=== PATIENT | male | born 1930 | race Caucasian/White ===

== ENCOUNTER 2018-08-21 06:58 | Day surgery (SDC) | payer MEDICARE, BC ==
[2018-08-21] MEDS ORDERED: Pilocarpine 4% Ophth Soln 15 ML Bot EYELF SCH (07:00)
[2018-08-21] MEDS ORDERED: Lidocaine 1% PF 2 ML SDV INJECT SCH (07:00)
[2018-08-21] MEDS ORDERED: Cefuroxime 10 MG/ML SYRINGE EYELF SCH (07:00)
--- NOTE | 2018-08-21 07:22 | PCM.PREANE ---
Preanesthetic Assessment - Anesthesia/Transfusion/Family Hx Anesthesia History: Prior Anesthesia Without Reaction Family History of Anesthesia Reaction: No Transfusion History: No Prior Transfusion(s) - Review of Systems General: No Symptoms Pulmonary: No Symptoms Cardiovascular: No Symptoms Gastrointestinal: No Symptoms Neurological: No Symptoms Other: Reports: None - Physical Assessment NPO Status Date: 08/18/18 NPO Status Time: 20:00 Pulse: 58 O2 Sat by Pulse Oximetry: 97 Respiratory Rate: 16 Blood Pressure: 146/78 Temperature: 97.1 C Height: 1.73 m Weight: 77.111 kg ASA Class: 2 Mental Status: Alert & Oriented x3 Airway Class: Mallampati = 1 Dentition: Reports: Broken Tooth/Teeth Thyro-Mental Finger Breadths: 3 Mouth Opening Finger Breadths: 3 ROM/Head Extension: Full Lungs: Clear to Auscultation, Normal Respiratory Effort Cardiovascular: Regular Rate, Regular Rhythm - Allergies Allergies/Adverse Reactions: Allergies Allergy/AdvReac Type Severity Reaction Status Date / Time No Known Allergies Allergy Verified 08/20/18 09:31 - Anesthesia Plan Beta [place]: Atenolol Med Last Dose Date: 08/21/18 Med Last Dose Time: 05:00 - Acknowledgements Anesthesia Type Planned: MAC Pt an Appropriate Candidate for the Planned Anesthesia: Yes Alternatives and Risks of Anesthesia Discussed w Pt/Guardian: Yes Pt/Guardian Understands and Agrees with Anesthesia Plan: Yes PreAnesthesia Questionnaire HEENT History: Reports: Cataract Cardiovascular History: Reports: Hypertension Respiratory History: Reports: SOB (with exertion) Gastrointestinal History: Reports: None Genitourinary History: Reports: None, Other (See Below) (hx prostate CA) Musculoskeletal History: Reports: Arthritis Neurological History: Reports: None Psychiatric History: Reports: None Endocrine/Metabolic History: Reports: None - Past Surgical History HEENT Surgical History: Reports: None GI Surgical History: Reports: Colonoscopy Male Surgical History: Reports: TURP-Transurethral Resection of Prostate Neurological Surgical History: Reports: Lumbar Spine Musculoskeletal Surgical History: Reports: Shoulder Replacement ((R)) - SUBSTANCE USE Smoking Status *Q: Never Smoker - HOME MEDS Home Medications: Home Meds Aspirin [Halfprin] 81 mg PO DAILY 08/20/18 [History] Atenolol 25 mg PO DAILY 08/20/18 [History] Calcium Carbonate [Antacid] 168 mg PO DAILY 08/20/18 [History] Cholecalciferol (Vitamin D3) [Vitamin D3] 1,000 units PO DAILY 08/20/18 [History ] Denosumab [Prolia] 60 mg INJECT Q6M 08/20/18 [History] Leuprolide Acetate [Eligard] 7.5 mg SQ Q6M 08/20/18 [History] - CURRENT (IN HOUSE) MEDS Current Meds: Current Medications Brimonidine Tartrate (Alphagan 0.2% Ophth Soln) 0 ml EYELF ASDIRECTED HERBERTH Stop: 08/21/18 18:00 Cefuroxime Sodium (Zinacef) 0 mg EYELF ASDIRECTED HERBERTH Stop: 08/21/18 18:00 Lidocaine HCl (Xylocaine-Mpf 1%) 0 ml INJECT ASDIRECTED HERBERTH Stop: 08/21/18 18:00 Phenylephrine HCl (Wilder-Synephrine 2.5% Ophth Soln) 0 ml EYELF ASDIRECTED HERBERTH Stop: 08/21/18 18:00 Pilocarpine HCl (Pilocar 4% Ophth Soln) 0 ml EYELF ASDIRECTED HERBERTH Stop: 08/21/18 18:00 Polymyxin/Trimethoprim Sulfate (Polytrim Ophth Soln) 0 ml EYELF ASDIRECTED HERBERTH Stop: 08/21/18 18:00 Tetracaine HCl (Tetracaine 0.5% Steri-Unit Jamia) 0 ml EYELF ASDIRECTED HERBERTH Stop: 08/21/18 18:00 Tropicamide (Mydriacyl 1% Ophth Soln) 0 ml EYELF ASDIRECTED HERBERTH Stop: 08/21/18 18:00
[2018-08-21] MEDS: Polymyxin B/Trimethoprim 10 ML Bottle EYELF SCH ×3 (07:27→09:01)
[2018-08-21] MEDS: Brimonidine 0.2% Ophth Soln 5 ML Bottle EYELF SCH ×3 (07:31→09:01)
[2018-08-21] MEDS: Phenylephrine 2.5% Ophth Soln 2 ML Bot EYELF SCH ×5 (07:36→08:42)
[2018-08-21] MEDS: Tropicamide 1% Ophth Soln 15 ML Bottle EYELF SCH ×4 (07:41→08:21)
[2018-08-21] MEDS: Tetracaine HCl/PF 0.5% 4 ML Bottle EYELF SCH ×4 (08:27→08:48)
--- NOTE | 2018-08-21 09:06 | PCM48HPAN ---
Post Anesthesia Note - EVALUATION WITHIN 48HRS OF ANESTHETIC Vital Signs in Normal Range: Yes Patient Participated in Evaluation: Yes Respiratory Function Stable: Yes Airway Patent: Yes Cardiovascular Function Stable: Yes Hydration Status Stable: Yes Pain Control Satisfactory: Yes Nausea and Vomiting Control Satisfactory: Yes Mental Status Recovered: Yes Pulse Rate: 58 SaO2: 99 Resp Rate: 16 Temperature: 97.1 C Blood Pressure: 146/78
== END 2018-08-21 09:10 | disposition home or self-care (01) ==
LOC: JD.SDS 06:58
PROVIDERS: ATTEND Ophthalmology
DX: H25.813 Combined forms of age-related cataract, bilateral (principal); I10 Essential (primary) hypertension; H35.363 Drusen (degenerative) of macula, bilateral; H35.3131 Nonexudative age-related macular degeneration, bilateral, early dry stage; H16.223 Keratoconjunctivitis sicca, not specified as Sjogren's, bilateral; H16.103 Unspecified superficial keratitis, bilateral; H02.831 Dermatochalasis of right upper eyelid; H02.834 Dermatochalasis of left upper eyelid; H40.003 Preglaucoma, unspecified, bilateral; Z79.82 Long term (current) use of aspirin; Z79.899 Other long term (current) drug therapy
CPT/HCPCS: 66984; A9270; C1780; J0697; J2001

== ENCOUNTER 2018-09-18 09:30 | Day surgery (SDC) | payer MEDICARE, BC ==
[~2018-09-18 09:30] MED LIST: Cefuroxime 10 MG/ML SYRINGE EYERT SCH; Lidocaine 1% PF 2 ML SDV INJECT SCH; Pilocarpine 4% Ophth Soln 15 ML Bot EYERT SCH; Tropicamide 0.5% Ophth Soln 15 ML Bottle EYERT SCH
[2018-09-18] MEDS: Polymyxin B/Trimethoprim 10 ML Bottle EYERT SCH ×3 (11:17→13:25)
--- NOTE | 2018-09-18 11:18 | PCM.PREANE ---
Preanesthetic Assessment - Anesthesia/Transfusion/Family Hx Anesthesia History: Prior Anesthesia Without Reaction Family History of Anesthesia Reaction: No Transfusion History: No Prior Transfusion(s) - Review of Systems General: No Symptoms Pulmonary: No Symptoms Cardiovascular: No Symptoms Gastrointestinal: No Symptoms Neurological: No Symptoms Other: Reports: None - Physical Assessment NPO Status Date: 09/17/18 NPO Status Time: 20:00 Pulse: 57 O2 Sat by Pulse Oximetry: 97 Respiratory Rate: 20 Blood Pressure: 133/80 Temperature: 97.3 C ASA Class: 2 Mental Status: Alert & Oriented x3 Airway Class: Mallampati = 1 Dentition: Reports: Normal Dentition Thyro-Mental Finger Breadths: 3 Mouth Opening Finger Breadths: 3 ROM/Head Extension: Full Lungs: Clear to Auscultation, Normal Respiratory Effort Cardiovascular: Regular Rate, Regular Rhythm - Allergies Allergies/Adverse Reactions: Allergies Allergy/AdvReac Type Severity Reaction Status Date / Time No Known Allergies Allergy Verified 09/17/18 13:06 - Anesthesia Plan Beta [place]: Atenolol Med Last Dose Date: 09/18/18 Med Last Dose Time: 07:00 - Acknowledgements Anesthesia Type Planned: MAC Pt an Appropriate Candidate for the Planned Anesthesia: Yes Alternatives and Risks of Anesthesia Discussed w Pt/Guardian: Yes Pt/Guardian Understands and Agrees with Anesthesia Plan: Yes PreAnesthesia Questionnaire HEENT History: Reports: Cataract Cardiovascular History: Reports: Hypertension Respiratory History: Reports: SOB (with exertion) Gastrointestinal History: Reports: None Genitourinary History: Reports: None, Other (See Below) (hx prostate CA) Musculoskeletal History: Reports: Arthritis Neurological History: Reports: None Psychiatric History: Reports: None Endocrine/Metabolic History: Reports: None Oncologic (Cancer) History: Reports: Prostate - Past Surgical History HEENT Surgical History: Reports: None GI Surgical History: Reports: Colonoscopy Male Surgical History: Reports: TURP-Transurethral Resection of Prostate Neurological Surgical History: Reports: Lumbar Spine Musculoskeletal Surgical History: Reports: Shoulder Replacement ((R)) - SUBSTANCE USE Smoking Status *Q: Never Smoker - HOME MEDS Home Medications: Home Meds Aspirin [Halfprin] 81 mg PO DAILY 08/20/18 [History] Atenolol 25 mg PO DAILY 08/20/18 [History] Calcium Carbonate [Antacid] 168 mg PO DAILY 08/20/18 [History] Cholecalciferol (Vitamin D3) [Vitamin D3] 1,000 units PO DAILY 08/20/18 [History ] Denosumab [Prolia] 60 mg INJECT Q6M 08/20/18 [History] Leuprolide Acetate [Eligard] 7.5 mg SQ Q6M 08/20/18 [History] - CURRENT (IN HOUSE) MEDS Current Meds: Current Medications Brimonidine Tartrate (Alphagan 0.2% Ophth Soln) 0 ml EYERT ASDIRECTED HERBERTH Stop: 09/18/18 23:00 Cefuroxime Sodium (Zinacef) 0 mg EYERT ASDIRECTED HERBERTH Stop: 09/18/18 23:00 Lidocaine HCl (Xylocaine-Mpf 1%) 0 ml INJECT ASDIRECTED HERBERTH Stop: 09/18/18 23:00 Phenylephrine HCl (Wilder-Synephrine 2.5% Ophth Soln) 0 ml EYERT ASDIRECTED HERBERTH Stop: 09/18/18 23:00 Pilocarpine HCl (Pilocar 4% Ophth Soln) 0 ml EYERT ASDIRECTED HERBER[facility] Stop: 09/18/18 23:00 Polymyxin/Trimethoprim Sulfate (Polytrim Ophth Soln) 0 ml EYERT ASDIRECTED EHRBERTH Stop: 09/18/18 23:00 Tetracaine HCl (Tetracaine 0.5% Steri-Unit Jamia) 1 ml EYERT ASDIRECTED HERBER[facility] Stop: 09/18/18 23:00 Tropicamide (Mydriacyl 1% Ophth Soln) 0 ml EYERT ASDIRECTED HERBERTH Stop: 09/18/18 18:00 Discontinued Medications Tropicamide (Mydriacyl 0.5% Ophth Soln) 0 ml EYERT ASDIRECTED HERBERTH Stop: 09/18/18 23:00
[2018-09-18] MEDS: Brimonidine 0.2% Ophth Soln 5 ML Bottle EYERT SCH ×3 (11:22→13:25)
[2018-09-18] MEDS: Phenylephrine 2.5% Ophth Soln 2 ML Bot EYERT SCH ×5 (11:27→13:08)
[2018-09-18] MEDS: Tropicamide 1% Ophth Soln 15 ML Bottle EYERT SCH ×4 (11:32→12:24)
[2018-09-18] MEDS: Tetracaine HCl/PF 0.5% 4 ML Bottle EYERT SCH ×4 (12:54→13:18)
--- NOTE | 2018-09-18 13:31 | PCM48HPAN ---
Post Anesthesia Note - EVALUATION WITHIN 48HRS OF ANESTHETIC Vital Signs in Normal Range: Yes Patient Participated in Evaluation: Yes Respiratory Function Stable: Yes Airway Patent: Yes Cardiovascular Function Stable: Yes Hydration Status Stable: Yes Pain Control Satisfactory: Yes Nausea and Vomiting Control Satisfactory: Yes Mental Status Recovered: Yes Pulse Rate: 57 Resp Rate: 20 Temperature: 97.3 C Blood Pressure: 133/80
== END 2018-09-18 13:37 | disposition home or self-care (01) ==
LOC: JD.SDS 09:30
PROVIDERS: ATTEND Ophthalmology
DX: H25.811 Combined forms of age-related cataract, right eye (principal); I10 Essential (primary) hypertension; H52.31 Anisometropia; H35.363 Drusen (degenerative) of macula, bilateral; H35.3132 Nonexudative age-related macular degeneration, bilateral, intermediate dry stage; M19.90 Unspecified osteoarthritis, unspecified site; Z79.82 Long term (current) use of aspirin; Z79.899 Other long term (current) drug therapy; Z98.42 Cataract extraction status, left eye; Z96.1 Presence of intraocular lens
CPT/HCPCS: 66984; A9270; C1780; J0697; J2001